=== PATIENT | male | born 1975 | race African-American/Black ===

== ENCOUNTER 2022-06-13 21:25 | Emergency (ER) | payer OTHER, MEDICAID, SELFPAY ==
[2022-06-13 21:48] VITALS: BP 133/83; PULSE 115; RESP 16; TEMP 37.5; O2SAT 99; BMI 35.2
--- NOTE | 2022-06-14 00:23 | ED_ITS ---
HPI - Recheck/Abnormal Lab/Rx General Chief Complaint: Recheck/Abnormal Lab/Rx Stated Complaint: Needs med refill Time Seen by Provider: 06/14/22 00:15 Source: patient Mode of arrival: Ambulatory History of Present Illness HPI narrative: Patient is a 47-year-old male who is here in the emergency department stating that he needs a refill on all of his prescription medications. States he was just recently discharged from retirement. States he was given his medications in retirement but did not receive any medications upon discharge. He does have a list of his medications with him. Related Data Home Medications Medication Instructions Recorded Confirmed [PROPHENIZINE] ##0 02/03/11 paliperidone 1.5 mg ##0 02/03/11 tablet,extended release 24 hr (Invega) ziprasidone HCl 20 mg capsule ##0 02/03/11 (Lolly) Previous Rx's Medication Instructions Recorded atorvastatin 20 mg tablet 20 mg PO DAILY #30 tabs 06/14/22 hydroxyzine HCl 25 mg tablet 25 mg PO BID PRN anxiety #30 tabs 06/14/22 losartan 25 mg tablet 25 mg PO DAILY #30 tabs 06/14/22 metformin 1,000 mg tablet 1,000 mg PO DAILY #30 tabs 06/14/22 mirtazapine 15 mg tablet (Remeron) 15 mg PO BEDTIME #30 tabs 06/14/22 paliperidone 1.5 mg 3 mg PO QAM #60 tabs 06/14/22 tablet,extended release 24 hr (Invega) ziprasidone HCl 80 mg capsule 80 mg PO BID #60 caps 06/14/22 (Lolly) Review of Systems Review of Systems Narrative: Patient has no specific symptoms. He is here for medication refill Patient History Social History Smoking Status: Current every day smoker Smoking Status: Current every day smoker tobacco type: cigarettes Substance Use Type: marijuana Exam Initial Vital Signs Initial Vital Signs: Vital Signs Temperature 99.5 F 06/13/22 21:48 Pulse Rate 115 H 06/13/22 21:48 Respiratory Rate 16 06/13/22 21:48 Blood Pressure 133/83 06/13/22 21:48 Pulse Oximetry 99 06/13/22 21:48 Oxygen Delivery Method Room Air 06/13/22 21:48 Const General: cooperative and comfortable Resp Effort & Inspection: normal respiratory effort Cardio Rate: regular rate Neuro General: patient alert, patient awake and moves all extremities Course Vital Signs Vital signs: Vital Signs - 8 hr 06/13/22 21:48 06/14/22 00:43 Temperature 99.5 F 98.7 F Pulse Rate 115 H 88 Respiratory Rate 16 18 Blood Pressure 133/83 132/74 Pulse Oximetry 99 97 Oxygen Delivery Method Room Air Room Air MDM - Recheck/Abnormal Lab/Rx MDM Narrative Medical decision making narrative: Patient did have a list of his medications and they were refilled per this list. There was sent to the pharmacy of his choice. He is also provided information with regard to mental health services per his request. The discharge instructions included with him were per his request as well as he wanted some information on schizophrenia and bipolar disorder and ADHD. Discharge Plan Departure Patient Disposition: Home Clinical Impression: Encounter for medication refill Instructions: Bipolar Disorder, Attention Deficit Hyperactivity Disorder and Attention Deficit Disorder, DI for Schizophrenia Activity Restrictions/Additional Instructions: [facility] [place] [facility] your request. I do recommend that you start taking them as directed. It is important that you establish care with a primary care doctor. It is also important that you establish care with a mental health provider. You can use the information that you were provided for this. Return to the emergency department for new symptoms. Prescriptions: New hydroxyzine HCl 25 mg tablet 25 mg PO BID PRN (Reason: anxiety) Qty: 30 2RF losartan 25 mg tablet 25 mg PO DAILY Qty: 30 2RF metformin 1,000 mg tablet 1,000 mg PO DAILY Qty: 30 2RF atorvastatin 20 mg tablet 20 mg PO DAILY Qty: 30 2RF paliperidone [Invega] 1.5 mg tablet extended release 24 hr 3 mg PO QAM Qty: 60 2RF mirtazapine [Remeron] 15 mg tablet 15 mg PO BEDTIME Qty: 30 2RF ziprasidone HCl [Geodon] 80 mg capsule 80 mg PO BID Qty: 60 2RF Rx Instructions: give with food (meal/snack) No Action paliperidone [Invega] 1.5 MG tablet extended release 24hr Qty: 0 ziprasidone HCl [Geodon] 20 MG capsule Qty: 0 [PROPHENIZINE] Qty: 0 Stand Alone Forms: Patient Portal/API
[2022-06-14 00:43] VITALS: BP 132/74; PULSE 88; RESP 18; TEMP 37.1; O2SAT 97
== END 2022-06-14 00:45 | disposition home or self-care (01) ==
PROVIDERS: Emergency Provider Emergency Medicine
DX: Z76.0 Encounter for issue of repeat prescription (principal)
CPT/HCPCS: 99281

== ENCOUNTER 2022-06-26 10:06 | Emergency (ER) | payer OTHER, MEDICAID, SELFPAY ==
[2022-06-26 10:23] VITALS: BP 145/101; PULSE 95; O2SAT 100
[2022-06-26 10:27] VITALS: BP 141/101; PULSE 95; RESP 18; TEMP 36.7; O2SAT 99
[2022-06-26 10:30] VITALS: BP 136/92; PULSE 94; O2SAT 99
--- NOTE | 2022-06-26 10:44 | ED.GENADULT ---
HPI - General Adult General Chief complaint: Diabetic Problem Stated complaint: Blood Sugar is High Time Seen by Provider: 06/26/22 10:41 Source: patient Mode of arrival: Ambulatory History of Present Illness HPI narrative: Patient is a 47-year-old male who is a [id number] diabetic who is here stating that his blood sugar is high. Patient states he is not taken his blood sugar but feels like he is urinating often which is why he thinks his blood sugar is high. He is no other presenting complaints. No other reported concerns. Related Data Home Medications Medication Instructions Recorded Confirmed [PROPHENIZINE] ##0 02/03/11 paliperidone 1.5 mg ##0 02/03/11 tablet,extended release 24 hr (Invega) ziprasidone HCl 20 mg capsule ##0 02/03/11 (Geodon) Previous Rx's Medication Instructions Recorded atorvastatin 20 mg tablet 20 mg PO DAILY #30 tabs 06/14/22 hydroxyzine HCl 25 mg tablet 25 mg PO BID PRN anxiety #30 tabs 06/14/22 losartan 25 mg tablet 25 mg PO DAILY #30 tabs 06/14/22 metformin 1,000 mg tablet 1,000 mg PO DAILY #30 tabs 06/14/22 mirtazapine 15 mg tablet (Remeron) 15 mg PO BEDTIME #30 tabs 06/14/22 paliperidone 1.5 mg 3 mg PO QAM #60 tabs 06/14/22 tablet,extended release 24 hr (Invega) ziprasidone HCl 80 mg capsule 80 mg PO BID #60 caps 06/14/22 (Geodon) Allergies Allergy/AdvReac Type Severity Reaction Status Date / Time No Known Drug Allergies Allergy Verified 06/26/22 10:30 Review of Systems Cardiovascular Comments: Denies chest pain Respiratory Comments: Denies shortness of breath Gastrointestinal Comments: Denies abdominal pain Genitourinary Comments: Is urinating frequently Musculoskeletal Comments: Denies arm or leg than Patient History Social History Smoking Status: Current every day smoker Smoking Status: Current every day smoker tobacco type: cigarettes alcohol intake frequency: 3 or more drinks per day Substance Use Type: marijuana Exam Initial Vital Signs Initial Vital Signs: Vital Signs Temperature 98.0 F 06/26/22 10:27 Pulse Rate 95 H 06/26/22 10:27 Respiratory Rate 18 06/26/22 10:27 Blood Pressure 141/101 H 06/26/22 10:27 Pulse Oximetry 99 06/26/22 10:27 Oxygen Delivery Method Room Air 06/26/22 10:27 Const General: cooperative and No ill appearing Resp Effort & Inspection: normal respiratory effort and able to speak in complete sentences Auscultation: clear to auscultation bilaterally Cardio Rate: regular rate Rhythm: regular rhythm GI Inspection: normal to inspection and non-distended Neuro Other: Patient does seem to be somnolent but is easily arousable. Moves all 4 extremities. Extrem General: normal to inspection Course Vital Signs Vital signs: Vital Signs - 8 hr 06/26/22 10:27 Temperature 98.0 F Pulse Rate 95 H Respiratory Rate 18 Blood Pressure 141/101 H Pulse Oximetry 99 Oxygen Delivery Method Room Air Medical Decision Making Lab Data Lab results reviewed: Yes I reviewed the patient's lab results. Labs: Point of Care Testing Glucose POC 118 Point of care testing: Point of Care Testing Glucose POC 118 MDM Narrative Medical decision making narrative: Patient was alert oriented x3. Was able to ambulate to the bathroom. Was somnolent but was easily arousable. Is here because he thinks his blood sugar is high because he has been urinating frequently although he does not have any other specific urinary complaints. His blood sugar here was 118. He is no other specific complaints. No other specific concerns. Will discharge patient home. Discharge Plan Departure Patient Disposition: Home Clinical Impression: Feared condition not demonstrated Activity Restrictions/Additional Instructions: Your blood sugar here in the emergency department is 118. I recommend that you continue to take all of your medications as directed. Contact your primary doctor for follow-up. Return to the emergency department for new or worsening symptoms. Prescriptions: No Action paliperidone [Invega] 1.5 MG tablet extended release 24hr Qty: 0 ziprasidone HCl [Geodon] 20 MG capsule Qty: 0 [PROPHENIZINE] Qty: 0 hydroxyzine HCl 25 mg tablet 25 mg PO BID PRN (Reason: anxiety) Qty: 30 2RF losartan 25 mg tablet 25 mg PO DAILY Qty: 30 2RF metformin 1,000 mg tablet 1,000 mg PO DAILY Qty: 30 2RF atorvastatin 20 mg tablet 20 mg PO DAILY Qty: 30 2RF paliperidone [Invega] 1.5 mg tablet extended release 24 hr 3 mg PO QAM Qty: 60 2RF mirtazapine [Remeron] 15 mg tablet 15 mg PO BEDTIME Qty: 30 2RF ziprasidone HCl [Geodon] 80 mg capsule 80 mg PO BID Qty: 60 2RF Rx Instructions: give with food (meal/snack) Referrals: Miscellaneous,Doctor, MD [Primary Care Provider] - Stand Alone Forms: Patient Portal/API
[2022-06-26 11:00] VITALS: BP 144/80; PULSE 92; O2SAT 98
--- NOTE | 2022-06-26 11:03 | PC.NURSE ---
assessment done in triage
== END 2022-06-26 11:05 | disposition home or self-care (01) ==
PROVIDERS: Emergency Provider Emergency Medicine
DX: E11.65 Type 2 diabetes mellitus with hyperglycemia (principal)
CPT/HCPCS: 82962; 99282

== ENCOUNTER 2022-07-05 22:00 | Emergency (ER) | payer OTHER, MEDICAID, SELFPAY ==
[2022-07-05 22:08] VITALS: BP 141/88; PULSE 104; RESP 16; TEMP 36.8; O2SAT 98; BMI 34.7
[2022-07-05] MEDS: hydrOXYzine pamoate 25 MG CAPSULE 50 MG PO (23:30)
[2022-07-05] MEDS: MIRTAZAPINE 15 MG TABLET 30 MG PO (23:30)
--- NOTE | 2022-07-05 23:30 | ED.RECABL ---
HPI - Recheck/Abnormal Lab/Rx General Chief Complaint: Recheck/Abnormal Lab/Rx Stated Complaint: Says needs med refill for antipsych Time Seen by Provider: 07/05/22 23:13 Source: patient Mode of arrival: Ambulatory History of Present Illness HPI narrative: Patient is a 47-year-old male history of schizophrenia presents today for medication refill. He was actually seen here in the emergency department on 05/25/2022 for prescription medication refill. He says he has couple pills left. He reports taking them like he is supposed to. Denies suicidal or homicidal ideations. He reports that he always hears voices does not seem to be worse today. Related Data Home Medications Medication Instructions Recorded Confirmed [PROPHENIZINE] ##0 02/03/11 paliperidone 1.5 mg ##0 02/03/11 tablet,extended release 24 hr (Invega) ziprasidone HCl 20 mg capsule ##0 02/03/11 (Geodon) Previous Rx's Medication Instructions Recorded atorvastatin 20 mg tablet 20 mg PO DAILY #30 tabs 06/14/22 hydroxyzine HCl 25 mg tablet 25 mg PO BID PRN anxiety #30 tabs 06/14/22 losartan 25 mg tablet 25 mg PO DAILY #30 tabs 06/14/22 metformin 1,000 mg tablet 1,000 mg PO DAILY #30 tabs 06/14/22 mirtazapine 15 mg tablet (Remeron) 15 mg PO BEDTIME #30 tabs 06/14/22 paliperidone 1.5 mg 3 mg PO QAM #60 tabs 06/14/22 tablet,extended release 24 hr (Invega) ziprasidone HCl 80 mg capsule 80 mg PO BID #60 caps 06/14/22 (Geodon) hydroxyzine HCl 50 mg tablet 50 mg PO BID PRN anxiety #60 tabs 07/05/22 losartan 25 mg tablet 25 mg PO DAILY #30 tabs 07/05/22 mirtazapine 15 mg tablet (Remeron) 15 mg PO BEDTIME #30 tabs 07/05/22 paliperidone 3 mg tablet,extended 3 mg PO QAM #30 tabs 07/05/22 release 24 hr ziprasidone HCl 80 mg capsule 80 mg PO BID #60 caps 07/05/22 (Geodon) Allergies Allergy/AdvReac Type Severity Reaction Status Date / Time No Known Drug Allergies Allergy Verified 06/26/22 10:30 Patient History Social History Smoking Status: Current every day smoker Smoking Status: Current every day smoker tobacco type: cigarettes alcohol intake frequency: 3 or more drinks per day Alcohol type: beer Substance Use Type: methamphetamine Exam Initial Vital Signs Initial Vital Signs: Vital Signs Temperature 98.2 F 07/05/22 22:08 Pulse Rate 104 H 07/05/22 22:08 Respiratory Rate 16 07/05/22 22:08 Blood Pressure 141/88 H 07/05/22 22:08 Pulse Oximetry 98 07/05/22 22:08 Oxygen Delivery Method Room Air 07/05/22 22:08 Course Orders Ordered: Discontinued Medications Hydroxyzine Pamoate (Hydroxyzine Pamoate 25 Mg Capsule) 50 mg PO NOW ONE Stop: 07/05/22 23:22 Last Admin: 07/05/22 23:30 Dose: 50 mg Documented By: BARBARA Mirtazapine (Mirtazapine 15 Mg Tablet) 30 mg PO BEDTIME DEEPTHI Last Admin: 07/05/22 23:30 Dose: 30 mg Documented By: BARBARA Vital Signs Vital signs: Vital Signs - 8 hr 07/05/22 22:08 Temperature 98.2 F Pulse Rate 104 H Respiratory Rate 16 Blood Pressure 141/88 H Pulse Oximetry 98 Oxygen Delivery Method Room Air MDM - Recheck/Abnormal Lab/Rx MDM Narrative Medical decision making narrative: Patient is cooperative. I will refill him for 1 more month. He is requesting something for right now. He is given hydroxyzine and Remeron for tonight. Prescriptions are being filled needs to follow-up he is no thoughts of suicide or homicide. He does not need placement is not gravely disabled. Discharge Plan Departure Patient Disposition: Home Clinical Impression: Feared condition not demonstrated, Schizophrenia Instructions: DI for Schizophrenia Activity Restrictions/Additional Instructions: *You have been diagnosed with refill medications *What to do: You need to get your medications refilled by PCP or Psychiatry, the ER is not a place for medication refills *Continue to take medications as directed *Follow up with your primary care provider in 2-3 days or call [phone] *Return to ER if you should have increasing voices thoughts of self-harm or any new, worsening or concerning symptoms Prescriptions: New hydroxyzine HCl 50 mg tablet 50 mg PO BID PRN (Reason: anxiety) Qty: 60 0RF losartan 25 mg tablet 25 mg PO DAILY Qty: 30 0RF mirtazapine [Remeron] 15 mg tablet 15 mg PO BEDTIME Qty: 30 0RF paliperidone 3 mg tablet extended release 24 hr 3 mg PO QAM Qty: 30 0RF ziprasidone HCl [Geodon] 80 mg capsule 80 mg PO BID Qty: 60 0RF Rx Instructions: give with food (meal/snack) No Action paliperidone [Invega] 1.5 MG tablet extended release 24hr Qty: 0 ziprasidone HCl [Geodon] 20 MG capsule Qty: 0 [PROPHENIZINE] Qty: 0 hydroxyzine HCl 25 mg tablet 25 mg PO BID PRN (Reason: anxiety) Qty: 30 2RF losartan 25 mg tablet 25 mg PO DAILY Qty: 30 2RF metformin 1,000 mg tablet 1,000 mg PO DAILY Qty: 30 2RF atorvastatin 20 mg tablet 20 mg PO DAILY Qty: 30 2RF paliperidone [Invega] 1.5 mg tablet extended release 24 hr 3 mg PO QAM Qty: 60 2RF mirtazapine [Remeron] 15 mg tablet 15 mg PO BEDTIME Qty: 30 2RF ziprasidone HCl [Geodon] 80 mg capsule 80 mg PO BID Qty: 60 2RF Rx Instructions: give with food (meal/snack) Referrals: Miscellaneous,Doctor, MD [Primary Care Provider] - Stand Alone Forms: Patient Portal/API
== END 2022-07-05 23:38 | disposition home or self-care (01) ==
PROVIDERS: Emergency Provider Emergency Medicine
DX: Z76.0 Encounter for issue of repeat prescription (principal); F20.9 Schizophrenia, unspecified
CPT/HCPCS: 99283

== ENCOUNTER 2022-07-18 11:55 | Emergency (ER) | payer OTHER, MEDICAID, SELFPAY ==
[2022-07-18 12:00] VITALS: BP 201/108; PULSE 102; O2SAT 97; BMI 28.5
--- NOTE | 2022-07-18 12:08 | ED.GENADULT ---
HPI - General Adult General Chief complaint: Recheck/Abnormal Lab/Rx Stated complaint: fit for nursing home Time Seen by Provider: 07/18/22 12:02 History of Present Illness HPI narrative: 47-year-old male smoker with history of hypertension and hyperlipidemia as well as mental health diagnoses presents by police for medical clearance prior to incarceration. He was agressive on scene and had been tazed in his left anterior hip. EMS responded and removed the barbs and performed a medical clearance but per protocol patient was brought here prior to incarceration. Patient has no symptoms, he denies headache trouble speech or neck pain. He has no chest pain, shortness of breath or cough. He has no abdominal pain, nausea or vomiting. Related Data Home Medications Medication Instructions Recorded Confirmed [PROPHENIZINE] ##0 02/03/11 paliperidone 1.5 mg ##0 02/03/11 tablet,extended release 24 hr (Invega) ziprasidone HCl 20 mg capsule ##0 02/03/11 (Geodon) Previous Rx's Medication Instructions Recorded atorvastatin 20 mg tablet 20 mg PO DAILY #30 tabs 06/14/22 hydroxyzine HCl 25 mg tablet 25 mg PO BID PRN anxiety #30 tabs 06/14/22 losartan 25 mg tablet 25 mg PO DAILY #30 tabs 06/14/22 metformin 1,000 mg tablet 1,000 mg PO DAILY #30 tabs 06/14/22 mirtazapine 15 mg tablet (Remeron) 15 mg PO BEDTIME #30 tabs 06/14/22 paliperidone 1.5 mg 3 mg PO QAM #60 tabs 06/14/22 tablet,extended release 24 hr (Invega) ziprasidone HCl 80 mg capsule 80 mg PO BID #60 caps 06/14/22 (Geodon) hydroxyzine HCl 50 mg tablet 50 mg PO BID PRN anxiety #60 tabs 07/05/22 losartan 25 mg tablet 25 mg PO DAILY #30 tabs 07/05/22 mirtazapine 15 mg tablet (Remeron) 15 mg PO BEDTIME #30 tabs 07/05/22 paliperidone 3 mg tablet,extended 3 mg PO QAM #30 tabs 07/05/22 release 24 hr ziprasidone HCl 80 mg capsule 80 mg PO BID #60 caps 07/05/22 (Geodon) atorvastatin 20 mg tablet 20 mg PO DAILY #30 tabs 07/18/22 losartan 25 mg tablet 25 mg PO DAILY #30 tabs 07/18/22 metformin 1,000 mg tablet 1,000 mg PO BID #60 tabs 07/18/22 Allergies Allergy/AdvReac Type Severity Reaction Status Date / Time No Known Drug Allergies Allergy Verified 06/26/22 10:30 Review of Systems Review of Systems Narrative: GENERAL: Denies chills, fatigue, malaise, fever, sweats. HEENT: Denies sinus pain, ear pain, sore throat, difficulty swallowing, dizziness. RESPIRATORY: Denies dyspnea, cough, wheezing, hemoptysis, sputum. CARDIOVASCULAR: Denies chest pain, palpitations, orthopnea, edema, GASTROINTESTINAL: Denies nausea, vomiting, abdominal pain, diarrhea, constipation, melena. : Denies dysuria, frequency, incontinence, hematuria, urinary retention. MUSCULOSKELETAL: denies weakness, joint pain, or bony pain SKIN: Denies rash, skin lesions, or other NEUROLOGIC: Denies weakness, headache, numbness, change in speech, confusion, seizures, incoordination. PSYCHIATRIC: No concerning psychosocial issues. 12 point review of systems is negative except for those stated above Patient History Social History Smoking Status: Current every day smoker Smoking Status: Current every day smoker tobacco type: cigarettes alcohol intake frequency: 3 or more drinks per day Alcohol type: beer Substance Use Type: methamphetamine Exam Narrative Exam Narrative: GEN: AOx3 and in no obvious distress. GCS 15 EYES: Pupils are equal, round, and reactive to light and accommodation. Extraoccular muscles are intact bilaterally. There is no subconjunctival hemorrhage or exudate. CHEST: Lungs are clear to auscultation bilaterally and free of wheezes, rales, or rhonchi. Heart rate is regular rhythm, there are no murmurs, clicks, rubs, or gallops. There is no chest wall tenderness. ABD: L anterior hip with [facility]. Abdomen is soft and nontender. There is no guarding or rebound. Bowel sounds are normal in all 4 quadrants. There is no mass or organomegaly. EXT: Full painless ROM of all extremities with no loss of sensation or strength. SKIN: Warm, pink, and dry. No erythema or rash Initial Vital Signs Initial Vital Signs: Vital Signs Pulse Rate 102 H 07/18/22 12:00 Blood Pressure 201/108 H 07/18/22 12:00 Pulse Oximetry 97 07/18/22 12:00 Oxygen Delivery Method Room Air 07/18/22 12:00 Medical Decision Making MDM Narrative Medical decision making narrative: [47] year old patient presents with police need for medical incarceration after Taser Multiple etiologies for patient's symptoms considered including, but not limited to: [Foreign body retained, injuries from event versus other] Prior Charts reviewed in our EMR Primary Historian: patient Patient with reassuring history and physical exam presents absent of any complaints. He is medically cleared for incarceration, there is no indication for further workup Findings and discharge diagnosis discussed with patient/family followed by verbalization of understanding Return precautions discussed with patient/family whom verbalize understanding of diagnosis and plan Discharge Plan Departure Patient Disposition: Home Clinical Impression: Medical clearance for incarceration, Electrocution caused by Taser Activity Restrictions/Additional Instructions: *You have been diagnosed with [medical clearance for incarceration] *What to do: *Please continue to take your regular medications as directed. [ ] New medication prescriptions sent to your pharmacy: [ ] [x ] New medication written as a paper prescription [ ] No new medications given *Please follow up with your primary care provider in 2-3 days, call for an appointment. Let them know you were seen in the Emergency Department and that we ask that you be seen in follow up. We will electronically transmit a record of today's note if your PCP is in our system *If you do not have a primary care provider please contact the [facility] Resource line at [phone]. They will ask some questions about your medical history and help get you set up with a doctor in the community. *Return to Emergency Department if you should have any new, worsening or concerning symptoms, such as [fever greater than 101 F, shaking chills, worsening pain, persistent vomiting or other bothersome symptoms] Prescriptions: New atorvastatin 20 mg tablet 20 mg PO DAILY Qty: 30 0RF losartan 25 mg tablet 25 mg PO DAILY Qty: 30 0RF metformin 1,000 mg tablet 1,000 mg PO BID Qty: 60 0RF No Action paliperidone [Invega] 1.5 MG tablet extended release 24hr Qty: 0 ziprasidone HCl [Geodon] 20 MG capsule Qty: 0 [PROPHENIZINE] Qty: 0 hydroxyzine HCl 25 mg tablet 25 mg PO BID PRN (Reason: anxiety) Qty: 30 2RF losartan 25 mg tablet 25 mg PO DAILY Qty: 30 2RF metformin 1,000 mg tablet 1,000 mg PO DAILY Qty: 30 2RF atorvastatin 20 mg tablet 20 mg PO DAILY Qty: 30 2RF paliperidone [Invega] 1.5 mg tablet extended release 24 hr 3 mg PO QAM Qty: 60 2RF mirtazapine [Remeron] 15 mg tablet 15 mg PO BEDTIME Qty: 30 2RF ziprasidone HCl [Geodon] 80 mg capsule 80 mg PO BID Qty: 60 2RF Rx Instructions: give with food (meal/snack) hydroxyzine HCl 50 mg tablet 50 mg PO BID PRN (Reason: anxiety) Qty: 60 0RF losartan 25 mg tablet 25 mg PO DAILY Qty: 30 0RF mirtazapine [Remeron] 15 mg tablet 15 mg PO BEDTIME Qty: 30 0RF paliperidone 3 mg tablet extended release 24 hr 3 mg PO QAM Qty: 30 0RF ziprasidone HCl [Geodon] 80 mg capsule 80 mg PO BID Qty: 60 0RF Rx Instructions: give with food (meal/snack) Referrals: Miscellaneous,Doctor, MD [Primary Care Provider] - Stand Alone Forms: Patient Portal/API
--- NOTE | 2022-07-18 12:11 | PC.NURSE ---
Pt arrives for clear to book in custody with [employer]. Pt appears in no apparent distress. Pt was tazered for non-compliance this morning. Physician at the bedside.
[2022-07-18 12:15] VITALS: PULSE 89; RESP 18; TEMP 36.7; O2SAT 97
== END 2022-07-18 12:16 | disposition home or self-care (01) ==
LOC: ED 12:18
PROVIDERS: Emergency Provider Emergency Medicine
DX: T75.4XXA Electrocution, initial encounter (principal); Z00.8 Encounter for other general examination
CPT/HCPCS: 99281

== ENCOUNTER 2022-07-23 01:06 | Emergency (ER) | payer OTHER, MEDICAID, SELFPAY ==
[2022-07-23 01:14] VITALS: BP 177/82; PULSE 84; RESP 18; TEMP 36.6; O2SAT 100; BMI 66.6
--- NOTE | 2022-07-23 01:28 | ED.RECABL ---
HPI - Recheck/Abnormal Lab/Rx General Chief Complaint: Recheck/Abnormal Lab/Rx Stated Complaint: NEED MEDS Time Seen by Provider: 07/23/22 01:08 Source: patient Mode of arrival: Ambulatory History of Present Illness HPI narrative: Patient is a 47-year-old male who is here for a medication refill. Was recently here in the emergency department for a fit for retirement. He was also seen here in the emergency department 2 weeks ago and is given a 30 day supply of his medication. Unsure why he does not have more of his medications but he states he is out of the medicines. Related Data Home Medications Medication Instructions Recorded Confirmed [PROPHENIZINE] ##0 02/03/11 paliperidone 1.5 mg ##0 02/03/11 tablet,extended release 24 hr (Invega) ziprasidone HCl 20 mg capsule ##0 02/03/11 (Geodon) Previous Rx's Medication Instructions Recorded atorvastatin 20 mg tablet 20 mg PO DAILY #30 tabs 06/14/22 hydroxyzine HCl 25 mg tablet 25 mg PO BID PRN anxiety #30 tabs 06/14/22 losartan 25 mg tablet 25 mg PO DAILY #30 tabs 06/14/22 metformin 1,000 mg tablet 1,000 mg PO DAILY #30 tabs 06/14/22 mirtazapine 15 mg tablet (Remeron) 15 mg PO BEDTIME #30 tabs 06/14/22 paliperidone 1.5 mg 3 mg PO QAM #60 tabs 06/14/22 tablet,extended release 24 hr (Invega) ziprasidone HCl 80 mg capsule 80 mg PO BID #60 caps 06/14/22 (Geodon) hydroxyzine HCl 50 mg tablet 50 mg PO BID PRN anxiety #60 tabs 07/05/22 losartan 25 mg tablet 25 mg PO DAILY #30 tabs 07/05/22 mirtazapine 15 mg tablet (Remeron) 15 mg PO BEDTIME #30 tabs 07/05/22 paliperidone 3 mg tablet,extended 3 mg PO QAM #30 tabs 07/05/22 release 24 hr ziprasidone HCl 80 mg capsule 80 mg PO BID #60 caps 07/05/22 (Geodon) atorvastatin 20 mg tablet 20 mg PO DAILY #30 tabs 07/18/22 losartan 25 mg tablet 25 mg PO DAILY #30 tabs 07/18/22 metformin 1,000 mg tablet 1,000 mg PO BID #60 tabs 07/18/22 hydroxyzine HCl 25 mg tablet 25 mg PO BID PRN anxiety #60 tabs 07/23/22 mirtazapine 15 mg tablet (Remeron) 15 mg PO BEDTIME PRN sleep #30 tabs 07/23/22 paliperidone 3 mg tablet,extended 3 mg PO QAM #30 tabs 07/23/22 release 24 hr (Invega) ziprasidone HCl 80 mg capsule 80 mg PO BID #60 caps 07/23/22 (Geodon) Allergies Allergy/AdvReac Type Severity Reaction Status Date / Time No Known Drug Allergies Allergy Verified 06/26/22 10:30 Review of Systems Review of Systems Narrative: Here for medication refill Patient History Social History Smoking Status: Current every day smoker Smoking Status: Current every day smoker tobacco type: cigarettes alcohol intake frequency: 3 or more drinks per day Alcohol type: beer Substance Use Type: methamphetamine Exam Initial Vital Signs Initial Vital Signs: Vital Signs Temperature 97.9 F 07/23/22 01:14 Pulse Rate 84 07/23/22 01:14 Respiratory Rate 18 07/23/22 01:14 Blood Pressure 177/82 H 07/23/22 01:14 Pulse Oximetry 100 07/23/22 01:14 Oxygen Delivery Method Room Air 07/23/22 01:14 Const General: cooperative and comfortable Resp Effort & Inspection: normal respiratory effort Cardio Rate: regular rate Course Vital Signs Vital signs: Vital Signs - 8 hr 07/23/22 01:14 Temperature 97.9 F Pulse Rate 84 Respiratory Rate 18 Blood Pressure 177/82 H Pulse Oximetry 100 Oxygen Delivery Method Room Air MDM - Recheck/Abnormal Lab/Rx MDM Narrative Medical decision making narrative: Refilled 30 days of his Geodon, Invega, Remeron and hydroxyzine they were sent to the pharmacy of his choice. Discharge Plan Departure Patient Disposition: Home Clinical Impression: Encounter for medication refill Activity Restrictions/Additional Instructions: Your medications were sent to [facility] here in [place]. Please take them as directed Prescriptions: New ziprasidone HCl [Geodon] 80 mg capsule 80 mg PO BID Qty: 60 0RF Rx Instructions: give with food (meal/snack) paliperidone [Invega] 3 mg tablet extended release 24 hr 3 mg PO QAM Qty: 30 0RF mirtazapine [Remeron] 15 mg tablet 15 mg PO BEDTIME PRN (Reason: sleep) Qty: 30 0RF hydroxyzine HCl 25 mg tablet 25 mg PO BID PRN (Reason: anxiety) Qty: 60 0RF No Action paliperidone [Invega] 1.5 MG tablet extended release 24hr Qty: 0 ziprasidone HCl [Geodon] 20 MG capsule Qty: 0 [PROPHENIZINE] Qty: 0 hydroxyzine HCl 25 mg tablet 25 mg PO BID PRN (Reason: anxiety) Qty: 30 2RF losartan 25 mg tablet 25 mg PO DAILY Qty: 30 2RF metformin 1,000 mg tablet 1,000 mg PO DAILY Qty: 30 2RF atorvastatin 20 mg tablet 20 mg PO DAILY Qty: 30 2RF paliperidone [Invega] 1.5 mg tablet extended release 24 hr 3 mg PO QAM Qty: 60 2RF mirtazapine [Remeron] 15 mg tablet 15 mg PO BEDTIME Qty: 30 2RF ziprasidone HCl [Geodon] 80 mg capsule 80 mg PO BID Qty: 60 2RF Rx Instructions: give with food (meal/snack) hydroxyzine HCl 50 mg tablet 50 mg PO BID PRN (Reason: anxiety) Qty: 60 0RF losartan 25 mg tablet 25 mg PO DAILY Qty: 30 0RF mirtazapine [Remeron] 15 mg tablet 15 mg PO BEDTIME Qty: 30 0RF paliperidone 3 mg tablet extended release 24 hr 3 mg PO QAM Qty: 30 0RF ziprasidone HCl [Geodon] 80 mg capsule 80 mg PO BID Qty: 60 0RF Rx Instructions: give with food (meal/snack) atorvastatin 20 mg tablet 20 mg PO DAILY Qty: 30 0RF losartan 25 mg tablet 25 mg PO DAILY Qty: 30 0RF metformin 1,000 mg tablet 1,000 mg PO BID Qty: 60 0RF Referrals: Miscellaneous,Doctor, MD [Primary Care Provider] - Stand Alone Forms: Patient Portal/API
[2022-07-23 01:40] VITALS: BP 166/84; PULSE 74; RESP 18; TEMP 36.6; O2SAT 97
== END 2022-07-23 01:41 | disposition home or self-care (01) ==
PROVIDERS: Emergency Provider Emergency Medicine
DX: Z76.0 Encounter for issue of repeat prescription (principal)
CPT/HCPCS: 99281

== ENCOUNTER 2022-07-29 22:30 | Emergency (ER) | payer OTHER, MEDICAID, SELFPAY ==
[2022-07-29 22:43] VITALS: BP 119/76; PULSE 117; RESP 16; TEMP 36.2; O2SAT 100; BMI 32.8
== END 2022-07-30 02:12 | disposition left against medical advice (07) ==
PROVIDERS: Emergency Provider Emergency Medicine
DX: Z76.0 Encounter for issue of repeat prescription (principal)
CPT/HCPCS: 99281

== ENCOUNTER 2022-07-30 03:10 | Emergency (ER) | payer OTHER, MEDICAID, SELFPAY ==
[2022-07-30 03:30] VITALS: BP 174/92; PULSE 88; RESP 18; TEMP 36.6; O2SAT 97; BMI 32.8
--- NOTE | 2022-07-30 04:39 | ED.RECABL ---
HPI - Recheck/Abnormal Lab/Rx General Chief Complaint: Recheck/Abnormal Lab/Rx Stated Complaint: wants meds Time Seen by Provider: 07/30/22 04:21 Source: patient Mode of arrival: Ambulatory History of Present Illness HPI narrative: 47-year-old male with history of hypertension, dyslipidemia with reported history of schizophrenia. Patient was seen proximal in the week for medication refill. He states that he was evicted from the location he was staying at and that his prescriptions were confiscated. Patient is requesting refill of the same medications, paliperidone, Remeron, hydroxyzine and ziprasidone. Patient denies suicidal homicidal ideations. He does ask that prescriptions be printed he wanted them sent to [facility] but did not know what pharmacy he would like. Patient denies other concerns currently. Related Data Home Medications Medication Instructions Recorded Confirmed [PROPHENIZINE] ##0 02/03/11 paliperidone 1.5 mg ##0 02/03/11 tablet,extended release 24 hr (Invega) ziprasidone HCl 20 mg capsule ##0 02/03/11 (Geodon) Previous Rx's Medication Instructions Recorded atorvastatin 20 mg tablet 20 mg PO DAILY #30 tabs 06/14/22 hydroxyzine HCl 25 mg tablet 25 mg PO BID PRN anxiety #30 tabs 06/14/22 losartan 25 mg tablet 25 mg PO DAILY #30 tabs 06/14/22 metformin 1,000 mg tablet 1,000 mg PO DAILY #30 tabs 06/14/22 mirtazapine 15 mg tablet (Remeron) 15 mg PO BEDTIME #30 tabs 06/14/22 paliperidone 1.5 mg 3 mg PO QAM #60 tabs 06/14/22 tablet,extended release 24 hr (Invega) ziprasidone HCl 80 mg capsule 80 mg PO BID #60 caps 06/14/22 (Geodon) hydroxyzine HCl 50 mg tablet 50 mg PO BID PRN anxiety #60 tabs 07/05/22 losartan 25 mg tablet 25 mg PO DAILY #30 tabs 07/05/22 mirtazapine 15 mg tablet (Remeron) 15 mg PO BEDTIME #30 tabs 07/05/22 paliperidone 3 mg tablet,extended 3 mg PO QAM #30 tabs 07/05/22 release 24 hr ziprasidone HCl 80 mg capsule 80 mg PO BID #60 caps 07/05/22 (Geodon) atorvastatin 20 mg tablet 20 mg PO DAILY #30 tabs 07/18/22 losartan 25 mg tablet 25 mg PO DAILY #30 tabs 07/18/22 metformin 1,000 mg tablet 1,000 mg PO BID #60 tabs 07/18/22 hydroxyzine HCl 25 mg tablet 25 mg PO BID PRN anxiety #60 tabs 07/23/22 mirtazapine 15 mg tablet (Remeron) 15 mg PO BEDTIME PRN sleep #30 tabs 07/23/22 paliperidone 3 mg tablet,extended 3 mg PO QAM #30 tabs 07/23/22 release 24 hr (Invega) ziprasidone HCl 80 mg capsule 80 mg PO BID #60 caps 07/23/22 (Geodon) hydroxyzine HCl 25 mg tablet 25 mg PO BID PRN anxiety #60 tabs 07/30/22 mirtazapine 15 mg tablet (Remeron) 15 mg PO BEDTIME PRN insomnia #30 07/30/22 tabs paliperidone 1.5 mg 3 mg PO QAM #30 tabs 07/30/22 tablet,extended release 24 hr ziprasidone HCl 80 mg capsule 80 mg PO BID #60 caps 07/30/22 Allergies Allergy/AdvReac Type Severity Reaction Status Date / Time No Known Drug Allergies Allergy Verified 06/26/22 10:30 Review of Systems Review of Systems ROS Unobtainable: All systems reviewed & are unremarkable except as noted in HPI and below Patient History Social History Smoking Status: Current every day smoker Smoking Status: Current every day smoker tobacco type: cigarettes alcohol intake frequency: 3 or more drinks per day Alcohol type: beer Substance Use Type: methamphetamine Exam Narrative Exam Narrative: GENERAL: Alert and oriented x three, male in mild distress. HEENT: Head normocephalic, atraumatic, EOMI, pupils reactive, face symmetric, moist mucous membranes NECK: Supple, full range of motion CARDIOVASCULAR: Regular rate and rhythm without murmurs, rubs or gallops. RESPIRATORY: Breath sounds equal bilaterally, no wheezes rales or rhonchi. ABDOMEN: Soft, nontender. Normoactive bowel sounds all 4 quadrants. No guarding or rebound, rigidity, no mass : No CVA tenderness EXTREMITIES: Normal range of motion, no clubbing or edema. Neurovascularly intact NEUROLOGICAL: Cranial nerves II through XII grossly intact. Moving all extremities SKIN: Warm, dry, no petechiae, no rashes or lesions. PSYCH: Denies suicidal or homicidal thoughts. Initial Vital Signs Initial Vital Signs: Vital Signs Temperature 98 F 07/30/22 03:30 Pulse Rate 88 07/30/22 03:30 Respiratory Rate 18 07/30/22 03:30 Blood Pressure 174/92 H 07/30/22 03:30 Pulse Oximetry 97 07/30/22 03:30 Oxygen Delivery Method Room Air 07/30/22 03:30 Course Vital Signs Vital signs: Vital Signs - 8 hr 07/30/22 03:30 Temperature 98 F Pulse Rate 88 Respiratory Rate 18 Blood Pressure 174/92 H Pulse Oximetry 97 Oxygen Delivery Method Room Air MDM - Recheck/Abnormal Lab/Rx MDM Narrative Medical decision making narrative: This is a 47-year-old male with reported history of schizophrenia who presents for request for medication refill. Patient is not having any suicidal or homicidal ideation, does not appear to be gravely disabled. Patient states that his medications were refilled but or taken when he was evicted and he is not been able to get them back. Discharge Plan Departure Patient Disposition: Home Clinical Impression: Prescription refill Activity Restrictions/Additional Instructions: If you're feeling suicidal or having suicidal thoughts, contact the suicide hotline (this is also the phone number for resources and counseling additional services): . Your prescriptions have been printed. Please take medications as directed. You may return for new or concerning changes or symptoms. Prescriptions: New paliperidone 1.5 mg tablet extended release 24 hr 3 mg PO QAM Qty: 30 0RF ziprasidone HCl 80 mg capsule 80 mg PO BID Qty: 60 0RF Rx Instructions: give with food (meal/snack) mirtazapine [Remeron] 15 mg tablet 15 mg PO BEDTIME PRN (Reason: insomnia) Qty: 30 0RF hydroxyzine HCl 25 mg tablet 25 mg PO BID PRN (Reason: anxiety) Qty: 60 0RF No Action paliperidone [Invega] 1.5 MG tablet extended release 24hr Qty: 0 ziprasidone HCl [Geodon] 20 MG capsule Qty: 0 [PROPHENIZINE] Qty: 0 hydroxyzine HCl 25 mg tablet 25 mg PO BID PRN (Reason: anxiety) Qty: 30 2RF losartan 25 mg tablet 25 mg PO DAILY Qty: 30 2RF metformin 1,000 mg tablet 1,000 mg PO DAILY Qty: 30 2RF atorvastatin 20 mg tablet 20 mg PO DAILY Qty: 30 2RF paliperidone [Invega] 1.5 mg tablet extended release 24 hr 3 mg PO QAM Qty: 60 2RF mirtazapine [Remeron] 15 mg tablet 15 mg PO BEDTIME Qty: 30 2RF ziprasidone HCl [Geodon] 80 mg capsule 80 mg PO BID Qty: 60 2RF Rx Instructions: give with food (meal/snack) ziprasidone HCl [Geodon] 80 mg capsule 80 mg PO BID Qty: 60 0RF Rx Instructions: give with food (meal/snack) paliperidone [Invega] 3 mg tablet extended release 24 hr 3 mg PO QAM Qty: 30 0RF mirtazapine [Remeron] 15 mg tablet 15 mg PO BEDTIME PRN (Reason: sleep) Qty: 30 0RF hydroxyzine HCl 25 mg tablet 25 mg PO BID PRN (Reason: anxiety) Qty: 60 0RF hydroxyzine HCl 50 mg tablet 50 mg PO BID PRN (Reason: anxiety) Qty: 60 0RF losartan 25 mg tablet 25 mg PO DAILY Qty: 30 0RF mirtazapine [Remeron] 15 mg tablet 15 mg PO BEDTIME Qty: 30 0RF paliperidone 3 mg tablet extended release 24 hr 3 mg PO QAM Qty: 30 0RF ziprasidone HCl [Geodon] 80 mg capsule 80 mg PO BID Qty: 60 0RF Rx Instructions: give with food (meal/snack) atorvastatin 20 mg tablet 20 mg PO DAILY Qty: 30 0RF losartan 25 mg tablet 25 mg PO DAILY Qty: 30 0RF metformin 1,000 mg tablet 1,000 mg PO BID Qty: 60 0RF Referrals: Miscellaneous,Doctor, MD [Primary Care Provider] - Stand Alone Forms: Patient Portal/API
[2022-07-30 05:15] VITALS: BP 118/76; PULSE 74; RESP 18; TEMP 36.6; O2SAT 97
== END 2022-07-30 05:17 | disposition home or self-care (01) ==
PROVIDERS: Emergency Provider Emergency Medicine
DX: Z76.0 Encounter for issue of repeat prescription (principal)
CPT/HCPCS: 99281

== ENCOUNTER 2022-07-31 23:25 | Emergency (ER) | payer OTHER, MEDICAID, SELFPAY ==
[2022-07-31 23:31] VITALS: BP 136/85; PULSE 106; RESP 18; TEMP 36.8; O2SAT 99; BMI 33.9
--- NOTE | 2022-08-01 01:40 | ED.BACK ---
HPI - Back Pain/Injury General Chief Complaint: Back Pain/Injury Stated Complaint: GENERALIZED PAIN, BACK AND FEET, Time Seen by Provider: 08/01/22 00:58 Source: patient History of Present Illness HPI Narrative: 47-year-old gentleman with a history of paranoid schizophrenia, polysubstance use including alcohol and methamphetamine, hypertension, type 2 diabetes who has had multiple visits to the ER over the last couple of weeks. Most recent was July 29 where he was dropped off by police at [facility] and left prior to being further evaluated. Today he presents to the emergency department but does not have any specific emergency complaint. He states that he would ?like some blood work because I think I am not healthy?. His affect is somewhat slowed and he does appear to be responding to internal stimuli but he is calm and appropriate. Related Data Home Medications Medication Instructions Recorded Confirmed [PROPHENIZINE] ##0 02/03/11 paliperidone 1.5 mg ##0 02/03/11 tablet,extended release 24 hr (Invega) ziprasidone HCl 20 mg capsule ##0 02/03/11 (Geodon) Previous Rx's Medication Instructions Recorded atorvastatin 20 mg tablet 20 mg PO DAILY #30 tabs 06/14/22 hydroxyzine HCl 25 mg tablet 25 mg PO BID PRN anxiety #30 tabs 06/14/22 losartan 25 mg tablet 25 mg PO DAILY #30 tabs 06/14/22 metformin 1,000 mg tablet 1,000 mg PO DAILY #30 tabs 06/14/22 mirtazapine 15 mg tablet (Remeron) 15 mg PO BEDTIME #30 tabs 06/14/22 paliperidone 1.5 mg 3 mg PO QAM #60 tabs 06/14/22 tablet,extended release 24 hr (Invega) ziprasidone HCl 80 mg capsule 80 mg PO BID #60 caps 06/14/22 (Geodon) hydroxyzine HCl 50 mg tablet 50 mg PO BID PRN anxiety #60 tabs 07/05/22 losartan 25 mg tablet 25 mg PO DAILY #30 tabs 07/05/22 mirtazapine 15 mg tablet (Remeron) 15 mg PO BEDTIME #30 tabs 07/05/22 paliperidone 3 mg tablet,extended 3 mg PO QAM #30 tabs 07/05/22 release 24 hr ziprasidone HCl 80 mg capsule 80 mg PO BID #60 caps 07/05/22 (Geodon) atorvastatin 20 mg tablet 20 mg PO DAILY #30 tabs 07/18/22 losartan 25 mg tablet 25 mg PO DAILY #30 tabs 07/18/22 metformin 1,000 mg tablet 1,000 mg PO BID #60 tabs 07/18/22 hydroxyzine HCl 25 mg tablet 25 mg PO BID PRN anxiety #60 tabs 07/23/22 mirtazapine 15 mg tablet (Remeron) 15 mg PO BEDTIME PRN sleep #30 tabs 07/23/22 paliperidone 3 mg tablet,extended 3 mg PO QAM #30 tabs 07/23/22 release 24 hr (Invega) ziprasidone HCl 80 mg capsule 80 mg PO BID #60 caps 07/23/22 (Geodon) hydroxyzine HCl 25 mg tablet 25 mg PO BID PRN anxiety #60 tabs 07/30/22 mirtazapine 15 mg tablet (Remeron) 15 mg PO BEDTIME PRN insomnia #30 07/30/22 tabs paliperidone 1.5 mg 3 mg PO QAM #30 tabs 07/30/22 tablet,extended release 24 hr ziprasidone HCl 80 mg capsule 80 mg PO BID #60 caps 07/30/22 Allergies Allergy/AdvReac Type Severity Reaction Status Date / Time No Known Drug Allergies Allergy Verified 06/26/22 10:30 Review of Systems Review of Systems Narrative: Remainder of complete review of systems is otherwise unremarkable except for that included in the HPI. Patient History Social History Smoking Status: Current every day smoker Smoking Status: Current every day smoker tobacco type: cigarettes alcohol intake frequency: 3 or more drinks per day Alcohol type: beer Substance Use Type: methamphetamine Exam Initial Vital Signs Initial Vital Signs: Vital Signs Temperature 98.3 F 07/31/22 23:31 Pulse Rate 106 H 07/31/22 23:31 Respiratory Rate 18 07/31/22 23:31 Blood Pressure 136/85 07/31/22 23:31 Pulse Oximetry 99 07/31/22 23:31 Oxygen Delivery Method Room Air 07/31/22 23:31 General: Alert, no acute distress, slowed overall Respiratory: Able to speak in full sentences, no obvious respiratory distress Skin: No obvious rashes, warm and dry Neurologic: Grossly intact no obvious asymmetries or abnormalities Psych: Cooperative, seems to be responding to internal stimuli, not acutely psychotic Course Vital Signs Vital signs: Vital Signs - 8 hr 07/31/22 23:31 Temperature 98.3 F Pulse Rate 106 H Respiratory Rate 18 Blood Pressure 136/85 Pulse Oximetry 99 Oxygen Delivery Method Room Air MDM - Back Pain/Injury MDM Narrative Medical decision making narrative: CC: Unclear. Patient has no specific obvious emergent concern. Complicating co-morbidities: Paranoid schizophrenia, diabetes, hyperlipidemia, anxiety, polysubstance use Data collected from: patient, Social determinants of health that may influence the patients condition: Currently does not have stable housing Medical records reviewed: Records from [facility] as well as previous notes from [facility] are reviewed Differential considered: Acute psychosis, decompensated schizophrenia, homelessness, malingering Exam documented above, pertinent findings include: No acute physical findings Lab Test not indicated today Discussion: It is unclear what type of help he is actually looking for. He has grocery bags full of food, most of it not diabetic appropriate, and has had pizza, bag of chips and multiple glasses of water while he has been in the emergency department. Clearly does not have a medical emergency and medical screening exam is benign. He seems quite confused but does have his hydroxyzine, losartan mirtazapine as well as paliperidone physically with him with at least 2-3 weeks left in bottles. He was looking for baseline blood work has questions about his diabetes. Encouraged him to follow up with his primary care doctor to refill his cholesterol, diabetes and high blood pressure medications. Encouraged him to follow-up with his psychiatric providers. Discharge Plan Departure Patient Disposition: Home Clinical Impression: Chronic paranoid schizophrenia Prescriptions: No Action paliperidone [Invega] 1.5 MG tablet extended release 24hr Qty: 0 ziprasidone HCl [Geodon] 20 MG capsule Qty: 0 [PROPHENIZINE] Qty: 0 hydroxyzine HCl 25 mg tablet 25 mg PO BID PRN (Reason: anxiety) Qty: 30 2RF losartan 25 mg tablet 25 mg PO DAILY Qty: 30 2RF metformin 1,000 mg tablet 1,000 mg PO DAILY Qty: 30 2RF atorvastatin 20 mg tablet 20 mg PO DAILY Qty: 30 2RF paliperidone [Invega] 1.5 mg tablet extended release 24 hr 3 mg PO QAM Qty: 60 2RF mirtazapine [Remeron] 15 mg tablet 15 mg PO BEDTIME Qty: 30 2RF ziprasidone HCl [Geodon] 80 mg capsule 80 mg PO BID Qty: 60 2RF Rx Instructions: give with food (meal/snack) ziprasidone HCl [Geodon] 80 mg capsule 80 mg PO BID Qty: 60 0RF Rx Instructions: give with food (meal/snack) paliperidone [Invega] 3 mg tablet extended release 24 hr 3 mg PO QAM Qty: 30 0RF mirtazapine [Remeron] 15 mg tablet 15 mg PO BEDTIME PRN (Reason: sleep) Qty: 30 0RF hydroxyzine HCl 25 mg tablet 25 mg PO BID PRN (Reason: anxiety) Qty: 60 0RF hydroxyzine HCl 50 mg tablet 50 mg PO BID PRN (Reason: anxiety) Qty: 60 0RF losartan 25 mg tablet 25 mg PO DAILY Qty: 30 0RF mirtazapine [Remeron] 15 mg tablet 15 mg PO BEDTIME Qty: 30 0RF paliperidone 3 mg tablet extended release 24 hr 3 mg PO QAM Qty: 30 0RF ziprasidone HCl [Geodon] 80 mg capsule 80 mg PO BID Qty: 60 0RF Rx Instructions: give with food (meal/snack) atorvastatin 20 mg tablet 20 mg PO DAILY Qty: 30 0RF losartan 25 mg tablet 25 mg PO DAILY Qty: 30 0RF metformin 1,000 mg tablet 1,000 mg PO BID Qty: 60 0RF paliperidone 1.5 mg tablet extended release 24 hr 3 mg PO QAM Qty: 30 0RF ziprasidone HCl 80 mg capsule 80 mg PO BID Qty: 60 0RF Rx Instructions: give with food (meal/snack) mirtazapine [Remeron] 15 mg tablet 15 mg PO BEDTIME PRN (Reason: insomnia) Qty: 30 0RF hydroxyzine HCl 25 mg tablet 25 mg PO BID PRN (Reason: anxiety) Qty: 60 0RF Referrals: Miscellaneous,Doctor, MD [Primary Care Provider] - Stand Alone Forms: Patient Portal/API
== END 2022-08-01 02:17 | disposition home or self-care (01) ==
PROVIDERS: Emergency Provider Emergency Medicine
DX: F20.0 Paranoid schizophrenia (principal)
CPT/HCPCS: 99281

== ENCOUNTER 2022-08-01 15:40 | Emergency (ER) | payer OTHER, MEDICAID, SELFPAY ==
[2022-08-01 15:42] VITALS: BP 152/94; PULSE 78; RESP 16; TEMP 36.3; BMI 31.2
--- NOTE | 2022-08-01 15:50 | ED_ITS ---
HPI - Recheck/Abnormal Lab/Rx General Chief Complaint: Recheck/Abnormal Lab/Rx Stated Complaint: States Needs Metformin Time Seen by Provider: 08/01/22 15:43 History of Present Illness HPI narrative: 47-year-old male daily smoker with history of diabetes and schizophrenia presents requesting refills for his medications. He is completely asymptomatic and specifically denies headaches, blurred vision, dizziness or lightheadedness. He has no chest pain, shortness of breath or cough. Denies abdominal pain, nausea, vomiting or diarrhea. He states he has not had his meds and probably 3 days and requests refills for metformin into of his psychiatric medications. He denies suicidal or homicidal ideation. Related Data Home Medications Medication Instructions Recorded Confirmed [PROPHENIZINE] ##0 02/03/11 paliperidone 1.5 mg ##0 02/03/11 tablet,extended release 24 hr (Invega) ziprasidone HCl 20 mg capsule ##0 02/03/11 (Geodon) Previous Rx's Medication Instructions Recorded atorvastatin 20 mg tablet 20 mg PO DAILY #30 tabs 06/14/22 hydroxyzine HCl 25 mg tablet 25 mg PO BID PRN anxiety #30 tabs 06/14/22 losartan 25 mg tablet 25 mg PO DAILY #30 tabs 06/14/22 metformin 1,000 mg tablet 1,000 mg PO DAILY #30 tabs 06/14/22 mirtazapine 15 mg tablet (Remeron) 15 mg PO BEDTIME #30 tabs 06/14/22 paliperidone 1.5 mg 3 mg PO QAM #60 tabs 06/14/22 tablet,extended release 24 hr (Invega) ziprasidone HCl 80 mg capsule 80 mg PO BID #60 caps 06/14/22 (Geodon) hydroxyzine HCl 50 mg tablet 50 mg PO BID PRN anxiety #60 tabs 07/05/22 losartan 25 mg tablet 25 mg PO DAILY #30 tabs 07/05/22 mirtazapine 15 mg tablet (Remeron) 15 mg PO BEDTIME #30 tabs 07/05/22 paliperidone 3 mg tablet,extended 3 mg PO QAM #30 tabs 07/05/22 release 24 hr ziprasidone HCl 80 mg capsule 80 mg PO BID #60 caps 07/05/22 (Geodon) atorvastatin 20 mg tablet 20 mg PO DAILY #30 tabs 07/18/22 losartan 25 mg tablet 25 mg PO DAILY #30 tabs 07/18/22 metformin 1,000 mg tablet 1,000 mg PO BID #60 tabs 07/18/22 hydroxyzine HCl 25 mg tablet 25 mg PO BID PRN anxiety #60 tabs 07/23/22 mirtazapine 15 mg tablet (Remeron) 15 mg PO BEDTIME PRN sleep #30 tabs 07/23/22 paliperidone 3 mg tablet,extended 3 mg PO QAM #30 tabs 07/23/22 release 24 hr (Invega) ziprasidone HCl 80 mg capsule 80 mg PO BID #60 caps 07/23/22 (Geodon) hydroxyzine HCl 25 mg tablet 25 mg PO BID PRN anxiety #60 tabs 07/30/22 mirtazapine 15 mg tablet (Remeron) 15 mg PO BEDTIME PRN insomnia #30 07/30/22 tabs paliperidone 1.5 mg 3 mg PO QAM #30 tabs 07/30/22 tablet,extended release 24 hr ziprasidone HCl 80 mg capsule 80 mg PO BID #60 caps 07/30/22 metformin 1,000 mg tablet 1,000 mg PO BID #60 tabs 08/01/22 paliperidone 3 mg tablet,extended 3 mg PO QAM #30 tabs 08/01/22 release 24 hr (Invega) perphenazine 4 mg tablet 4 mg PO BID #60 tabs 08/01/22 Allergies Allergy/AdvReac Type Severity Reaction Status Date / Time No Known Drug Allergies Allergy Verified 06/26/22 10:30 Review of Systems Review of Systems Narrative: GENERAL: Denies chills, fatigue, malaise, fever, sweats. HEENT: Denies sinus pain, ear pain, sore throat, difficulty swallowing, dizziness. RESPIRATORY: Denies dyspnea, cough, wheezing, hemoptysis, sputum. CARDIOVASCULAR: Denies chest pain, palpitations, orthopnea, edema, GASTROINTESTINAL: Denies nausea, vomiting, abdominal pain, diarrhea, constipation, melena. : Denies dysuria, frequency, incontinence, hematuria, urinary retention. MUSCULOSKELETAL: denies weakness, joint pain, or bony pain SKIN: Denies rash, skin lesions, or other NEUROLOGIC: Denies weakness, headache, numbness, change in speech, confusion, seizures, incoordination. PSYCHIATRIC: No concerning psychosocial issues. 12 point review of systems is negative except for those stated above Patient History Social History Smoking Status: Current every day smoker Smoking Status: Current every day smoker tobacco type: cigarettes alcohol intake frequency: 3 or more drinks per day Alcohol type: beer Substance Use Type: methamphetamine Exam Narrative Exam Narrative: GEN: AOx3 and in no obvious distress EYES: Pupils are equal, round, and reactive to light and accommodation. Extraoccular muscles are intact bilaterally. There is no subconjunctival hemorrhage or exudate. CHEST: Lungs are clear to auscultation bilaterally and free of wheezes, rales, or rhonchi. Heart rate is regular rhythm, there are no murmurs, clicks, rubs, or gallops. There is no chest wall tenderness. ABD: Abdomen is soft and nontender. There is no guarding or rebound. Bowel sounds are normal in all 4 quadrants. There is no mass or organomegaly. EXT: Full painless ROM of all extremities with no loss of sensation or strength. SKIN: Warm, pink, and dry. No erythema or rash Initial Vital Signs Initial Vital Signs: Vital Signs Temperature 97.3 F L 08/01/22 15:42 Pulse Rate 78 08/01/22 15:42 Respiratory Rate 16 08/01/22 15:42 Blood Pressure 152/94 H 08/01/22 15:42 Course Vital Signs Vital signs: Vital Signs - 8 hr 08/01/22 15:42 Temperature 97.3 F L Pulse Rate 78 Respiratory Rate 16 Blood Pressure 152/94 H MDM - Recheck/Abnormal Lab/Rx Lab Data Labs: Point of Care Testing Glucose POC 157 MDM Narrative Medical decision making narrative: [47] year old patient presents with request for medication refills in the absence of symptoms Multiple etiologies for patient's symptoms considered including, but not limited to: [ medically noncompliant] Prior Charts reviewed in our EMR Primary Historian: patient Patient with no complaints or symptoms other than needing med refill Findings and discharge diagnosis discussed with patient/family followed by verbalization of understanding Return precautions discussed with patient/family whom verbalize understanding of diagnosis and plan Discharge Plan Departure Patient Disposition: Home Clinical Impression: Encounter for medication refill, Feared complaint without diagnosis Instructions: How to Refill a Prescription Activity Restrictions/Additional Instructions: *You have been diagnosed with [ medication refill] *What to do: *Please continue to take your regular medications as directed. [x ] New medication prescriptions sent to your pharmacy: [[facility] ] *Please follow up with your primary care provider in 2-3 days, call for an appointment. Let them know you were seen in the Emergency Department and that we ask that you be seen in follow up. We will electronically transmit a record of today's note if your PCP is in our system *Return to Emergency Department if you should have any new, worsening or con cerning symptoms, such as [fever greater than 101 F, shaking chills, worsening pain, persistent vomiting or other bothersome symptoms] Prescriptions: New metformin 1,000 mg tablet 1,000 mg PO BID Qty: 60 0RF paliperidone [Invega] 3 mg tablet extended release 24 hr 3 mg PO QAM Qty: 30 0RF perphenazine 4 mg tablet 4 mg PO BID Qty: 60 0RF No Action paliperidone [Invega] 1.5 MG tablet extended release 24hr Qty: 0 ziprasidone HCl [Geodon] 20 MG capsule Qty: 0 [PROPHENIZINE] Qty: 0 hydroxyzine HCl 25 mg tablet 25 mg PO BID PRN (Reason: anxiety) Qty: 30 2RF losartan 25 mg tablet 25 mg PO DAILY Qty: 30 2RF metformin 1,000 mg tablet 1,000 mg PO DAILY Qty: 30 2RF atorvastatin 20 mg tablet 20 mg PO DAILY Qty: 30 2RF paliperidone [Invega] 1.5 mg tablet extended release 24 hr 3 mg PO QAM Qty: 60 2RF mirtazapine [Remeron] 15 mg tablet 15 mg PO BEDTIME Qty: 30 2RF ziprasidone HCl [Geodon] 80 mg capsule 80 mg PO BID Qty: 60 2RF Rx Instructions: give with food (meal/snack) ziprasidone HCl [Geodon] 80 mg capsule 80 mg PO BID Qty: 60 0RF Rx Instructions: give with food (meal/snack) paliperidone [Invega] 3 mg tablet extended release 24 hr 3 mg PO QAM Qty: 30 0RF mirtazapine [Remeron] 15 mg tablet 15 mg PO BEDTIME PRN (Reason: sleep) Qty: 30 0RF hydroxyzine HCl 25 mg tablet 25 mg PO BID PRN (Reason: anxiety) Qty: 60 0RF hydroxyzine HCl 50 mg tablet 50 mg PO BID PRN (Reason: anxiety) Qty: 60 0RF losartan 25 mg tablet 25 mg PO DAILY Qty: 30 0RF mirtazapine [Remeron] 15 mg tablet 15 mg PO BEDTIME Qty: 30 0RF paliperidone 3 mg tablet extended release 24 hr 3 mg PO QAM Qty: 30 0RF ziprasidone HCl [Geodon] 80 mg capsule 80 mg PO BID Qty: 60 0RF Rx Instructions: give with food (meal/snack) atorvastatin 20 mg tablet 20 mg PO DAILY Qty: 30 0RF losartan 25 mg tablet 25 mg PO DAILY Qty: 30 0RF metformin 1,000 mg tablet 1,000 mg PO BID Qty: 60 0RF paliperidone 1.5 mg tablet extended release 24 hr 3 mg PO QAM Qty: 30 0RF ziprasidone HCl 80 mg capsule 80 mg PO BID Qty: 60 0RF Rx Instructions: give with food (meal/snack) mirtazapine [Remeron] 15 mg tablet 15 mg PO BEDTIME PRN (Reason: insomnia) Qty: 30 0RF hydroxyzine HCl 25 mg tablet 25 mg PO BID PRN (Reason: anxiety) Qty: 60 0RF Referrals: Miscellaneous,Doctor, MD [Primary Care Provider] - Stand Alone Forms: Patient Portal/API
== END 2022-08-01 15:55 | disposition home or self-care (01) ==
PROVIDERS: Emergency Provider Emergency Medicine
DX: Z76.0 Encounter for issue of repeat prescription (principal)
CPT/HCPCS: 82962; 99281

== ENCOUNTER 2022-08-12 08:13 | Emergency (ER) | payer OTHER, MEDICAID, SELFPAY ==
[2022-08-12 08:16] VITALS: BP 141/94; PULSE 115; RESP 16; TEMP 37.3; O2SAT 97; BMI 33.9
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
--- NOTE | 2022-08-12 08:29 | PC.NURSE ---
Patient is not here for medical complaints, he is here for medication refill,
== END 2022-08-12 08:37 | disposition home or self-care (01) ==
PROVIDERS: Emergency Provider Emergency Medicine
DX: Z76.0 Encounter for issue of repeat prescription (principal); F20.9 Schizophrenia, unspecified
CPT/HCPCS: 99281

== ENCOUNTER 2022-08-13 03:58 | Emergency (ER) | payer OTHER, MEDICAID, SELFPAY ==
[2022-08-13 04:00] VITALS: BP 132/90; PULSE 121; RESP 20; TEMP 36.7; O2SAT 99; BMI 33.9
--- NOTE | 2022-08-13 04:11 | ED.EXTPRO ---
HPI - Extremity Problem General Chief complaint: Extremity Problem,Nontraumatic Stated complaint: feet are hurting Time Seen by Provider: 08/13/22 03:59 Source: patient Mode of arrival: Ambulatory History of Present Illness HPI Narrative: Patient is a 47-year-old male who was seen here in the emergency department yesterday needing a medication refill. He is homeless. He has a history of schizophrenia. He actively uses methamphetamine and drinks alcohol. He comes in the emergency department this morning stating that his feet are hurting. No specific injury. He states he is not taken issues and socks off for an extended period of time. He states he has been walking excessively. He does admit to using methamphetamine and drinking alcohol within the past hour. Related Data Home Medications Medication Instructions Recorded Confirmed [PROPHENIZINE] ##0 02/03/11 paliperidone 1.5 mg ##0 02/03/11 tablet,extended release 24 hr (Invega) ziprasidone HCl 20 mg capsule ##0 02/03/11 (Geodon) Previous Rx's Medication Instructions Recorded atorvastatin 20 mg tablet 20 mg PO DAILY #30 tabs 06/14/22 hydroxyzine HCl 25 mg tablet 25 mg PO BID PRN anxiety #30 tabs 06/14/22 losartan 25 mg tablet 25 mg PO DAILY #30 tabs 06/14/22 metformin 1,000 mg tablet 1,000 mg PO DAILY #30 tabs 06/14/22 mirtazapine 15 mg tablet (Remeron) 15 mg PO BEDTIME #30 tabs 06/14/22 paliperidone 1.5 mg 3 mg PO QAM #60 tabs 06/14/22 tablet,extended release 24 hr (Invega) ziprasidone HCl 80 mg capsule 80 mg PO BID #60 caps 06/14/22 (Geodon) hydroxyzine HCl 50 mg tablet 50 mg PO BID PRN anxiety #60 tabs 07/05/22 losartan 25 mg tablet 25 mg PO DAILY #30 tabs 07/05/22 mirtazapine 15 mg tablet (Remeron) 15 mg PO BEDTIME #30 tabs 07/05/22 paliperidone 3 mg tablet,extended 3 mg PO QAM #30 tabs 07/05/22 release 24 hr ziprasidone HCl 80 mg capsule 80 mg PO BID #60 caps 07/05/22 (Geodon) atorvastatin 20 mg tablet 20 mg PO DAILY #30 tabs 07/18/22 losartan 25 mg tablet 25 mg PO DAILY #30 tabs 07/18/22 metformin 1,000 mg tablet 1,000 mg PO BID #60 tabs 07/18/22 hydroxyzine HCl 25 mg tablet 25 mg PO BID PRN anxiety #60 tabs 07/23/22 mirtazapine 15 mg tablet (Remeron) 15 mg PO BEDTIME PRN sleep #30 tabs 07/23/22 paliperidone 3 mg tablet,extended 3 mg PO QAM #30 tabs 07/23/22 release 24 hr (Invega) ziprasidone HCl 80 mg capsule 80 mg PO BID #60 caps 07/23/22 (Geodon) hydroxyzine HCl 25 mg tablet 25 mg PO BID PRN anxiety #60 tabs 07/30/22 mirtazapine 15 mg tablet (Remeron) 15 mg PO BEDTIME PRN insomnia #30 07/30/22 tabs paliperidone 1.5 mg 3 mg PO QAM #30 tabs 07/30/22 tablet,extended release 24 hr ziprasidone HCl 80 mg capsule 80 mg PO BID #60 caps 07/30/22 metformin 1,000 mg tablet 1,000 mg PO BID #60 tabs 08/01/22 paliperidone 3 mg tablet,extended 3 mg PO QAM #30 tabs 08/01/22 release 24 hr (Invega) perphenazine 4 mg tablet 4 mg PO BID #60 tabs 08/01/22 atorvastatin 20 mg tablet 20 mg PO DAILY #30 tabs 08/12/22 hydroxyzine HCl 25 mg tablet 25 mg PO BID PRN itching #30 tabs 08/12/22 losartan 25 mg tablet 25 mg PO DAILY #30 tabs 08/12/22 metformin 1,000 mg tablet 1,000 mg PO BID #60 tabs 08/12/22 paliperidone 3 mg tablet,extended 3 mg PO DAILY #30 tabs 08/12/22 release 24 hr (Invega) perphenazine 4 mg tablet 4 mg PO BID #60 tabs 08/12/22 Allergies Allergy/AdvReac Type Severity Reaction Status Date / Time No Known Drug Allergies Allergy Verified 06/26/22 10:30 Review of Systems Musculoskeletal Musculoskeletal: Reports system reviewed and no additional complaints, except as documented Patient History Social History Smoking Status: Current every day smoker Smoking Status: Current every day smoker tobacco type: cigarettes alcohol intake frequency: 3 or more drinks per day Alcohol type: beer Substance Use Type: methamphetamine Exam Initial Vital Signs Initial Vital Signs: Vital Signs Temperature 98.1 F 08/13/22 04:00 Pulse Rate 121 H 08/13/22 04:00 Respiratory Rate 20 08/13/22 04:00 Blood Pressure 132/90 08/13/22 04:00 Pulse Oximetry 99 08/13/22 04:00 Oxygen Delivery Method Room Air 08/13/22 04:00 HENMT Head: normal to inspection and normocephalic Skin Other: Patient has changes to his feet that are consistent with a prolonged period of time in a moist environment and also standing. There is no erythema. No signs of infection. Extrem Other: Bilateral feet consistent with prolonged periods of time and moist environment. Course Vital Signs Vital signs: Vital Signs - 8 hr 08/13/22 04:00 Temperature 98.1 F Pulse Rate 121 H Respiratory Rate 20 Blood Pressure 132/90 Pulse Oximetry 99 Oxygen Delivery Method Room Air MDM - Extremity (Nontraumatic) MDM Narrative Medical decision making narrative: There are no signs of infection. He obviously has spent a prolonged period of time and a moist environment. His socks were removed. He was given a new pair of socks. He was told that he needs to spend time with his feet out of the socks and out of the shoes in order to avoid potential further issues. He is also asking for resource phone numbers for his social situation he was given a pamphlet for these. There is no indication for antibiotics. Discharge Plan Departure Patient Disposition: Home Clinical Impression: Pain in both feet Activity Restrictions/Additional Instructions: The findings today are consistent with you spinning an extended period of time in your shoes and socks. This is causing changes to your feet. It is important that you spend time airing your feet out which means taking off your shoes and your socks and spending time with your feet elevated. I also recommend that you try to find a new pair of shoes. Prescriptions: No Action paliperidone [Invega] 1.5 MG tablet extended release 24hr Qty: 0 ziprasidone HCl [Geodon] 20 MG capsule Qty: 0 [PROPHENIZINE] Qty: 0 hydroxyzine HCl 25 mg tablet 25 mg PO BID PRN (Reason: anxiety) Qty: 30 2RF losartan 25 mg tablet 25 mg PO DAILY Qty: 30 2RF metformin 1,000 mg tablet 1,000 mg PO DAILY Qty: 30 2RF atorvastatin 20 mg tablet 20 mg PO DAILY Qty: 30 2RF paliperidone [Invega] 1.5 mg tablet extended release 24 hr 3 mg PO QAM Qty: 60 2RF mirtazapine [Remeron] 15 mg tablet 15 mg PO BEDTIME Qty: 30 2RF ziprasidone HCl [Geodon] 80 mg capsule 80 mg PO BID Qty: 60 2RF Rx Instructions: give with food (meal/snack) ziprasidone HCl [Geodon] 80 mg capsule 80 mg PO BID Qty: 60 0RF Rx Instructions: give with food (meal/snack) paliperidone [Invega] 3 mg tablet extended release 24 hr 3 mg PO QAM Qty: 30 0RF mirtazapine [Remeron] 15 mg tablet 15 mg PO BEDTIME PRN (Reason: sleep) Qty: 30 0RF hydroxyzine HCl 25 mg tablet 25 mg PO BID PRN (Reason: anxiety) Qty: 60 0RF metformin 1,000 mg tablet 1,000 mg PO BID Qty: 60 0RF paliperidone [Invega] 3 mg tablet extended release 24 hr 3 mg PO QAM Qty: 30 0RF perphenazine 4 mg tablet 4 mg PO BID Qty: 60 0RF atorvastatin 20 mg tablet 20 mg PO DAILY Qty: 30 0RF hydroxyzine HCl 25 mg tablet 25 mg PO BID PRN (Reason: itching) Qty: 30 0RF losartan 25 mg tablet 25 mg PO DAILY Qty: 30 0RF metformin 1,000 mg tablet 1,000 mg PO BID Qty: 60 0RF paliperidone [Invega] 3 mg tablet extended release 24 hr 3 mg PO DAILY Qty: 30 0RF perphenazine 4 mg tablet 4 mg PO BID Qty: 60 0RF hydroxyzine HCl 50 mg tablet 50 mg PO BID PRN (Reason: anxiety) Qty: 60 0RF losartan 25 mg tablet 25 mg PO DAILY Qty: 30 0RF mirtazapine [Remeron] 15 mg tablet 15 mg PO BEDTIME Qty: 30 0RF paliperidone 3 mg tablet extended release 24 hr 3 mg PO QAM Qty: 30 0RF ziprasidone HCl [Geodon] 80 mg capsule 80 mg PO BID Qty: 60 0RF Rx Instructions: give with food (meal/snack) atorvastatin 20 mg tablet 20 mg PO DAILY Qty: 30 0RF losartan 25 mg tablet 25 mg PO DAILY Qty: 30 0RF metformin 1,000 mg tablet 1,000 mg PO BID Qty: 60 0RF paliperidone 1.5 mg tablet extended release 24 hr 3 mg PO QAM Qty: 30 0RF ziprasidone HCl 80 mg capsule 80 mg PO BID Qty: 60 0RF Rx Instructions: give with food (meal/snack) mirtazapine [Remeron] 15 mg tablet 15 mg PO BEDTIME PRN (Reason: insomnia) Qty: 30 0RF hydroxyzine HCl 25 mg tablet 25 mg PO BID PRN (Reason: anxiety) Qty: 60 0RF Referrals: Miscellaneous,Doctor, MD [Primary Care Provider] - Stand Alone Forms: Patient Portal/API
== END 2022-08-13 04:22 | disposition home or self-care (01) ==
PROVIDERS: Emergency Provider Emergency Medicine
DX: M79.672 Pain in left foot (principal); M79.671 Pain in right foot
CPT/HCPCS: 99281